=== PATIENT | female | born 1935 | race Caucasian/White ===

== ENCOUNTER 2016-10-12 08:00 | Outpatient (CLI) | payer MEDICARE, BC | END 2016-10-12 08:01 | disposition home or self-care (01) | DX: N30.00 Acute cystitis without hematuria (principal) ==

== ENCOUNTER 2016-11-04 10:53 | Outpatient (CLI) | payer MEDICARE, BC | END 2016-11-04 10:54 | disposition home or self-care (01) | LOC: LAB.R 10:53 | PROVIDERS: ATTEND Internal Medicine | DX: N30.00 Acute cystitis without hematuria (principal) | CPT/HCPCS: 87077; 87086 ==

== ENCOUNTER 2017-01-04 11:32 | Outpatient (CLI) | payer MEDICARE, BC | END 2017-01-04 11:33 | disposition home or self-care (01) | DX: I10 Essential (primary) hypertension (principal); R73.09 Other abnormal glucose; E78.2 Mixed hyperlipidemia; Z79.899 Other long term (current) drug therapy ==

== ENCOUNTER 2017-01-06 11:00 | Outpatient (CLI) | payer MEDICARE, BC | END 2017-01-06 11:01 | disposition home or self-care (01) | DX: N30.00 Acute cystitis without hematuria (principal) ==

== ENCOUNTER 2017-05-27 03:29 | Emergency (ER) | payer MEDICARE, BC ==
[2017-05-27] MEDS ORDERED: PROPARACAINE 0.5% OPHTH DROPS 15 ML ONE (03:53)
[2017-05-27] MEDS ORDERED: GENTAMICIN ONE (04:16)
[2017-05-27 04:26] VITALS: BP 188/88
--- NOTE | 2017-05-27 04:26 | ED Physician Documentation ---
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 About 1 hour prior to arrival she was squeezing hands utility assembler out of a bottle, when it splashed into her eye. She irrigated her right eye, but has continued to have pain and blurry vision. She denies headache, nausea or vomiting. She denies history of similar symptoms in the past. She has undergone cataract surgery, and wears reading glasses. 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 Cardiovascular: Vascular surgery HEENT: Cataracts - Present Medications Home Medications: Ambulatory Orders Medication Instructions Recorded Confirmed Omeprazole [PriLOSEC] 20 mg PO BID 06/12/13 05/27/17 Aspirin [Aspir-Low] 81 mg PO DAILY 02/02/16 05/27/17 Valsartan [Diovan] 80 mg QPM 04/22/16 05/27/17 Latanoprost 0.005% Ophth Drops 1 drops EACHEYE QPM bottle 04/23/16 05/27/17 [Xalatan Ophth Drops] Nitroglycerin [Nitrostat] 0.4 mg SL Q5MIN PRN #2 tablet 04/23/16 05/27/17 - Allergies Allergies/Adverse Reactions: Allergies Allergy/AdvReac Type Severity Reaction Status Date / Time celecoxib [From Celebrex] Allergy Mild stomach Verified 05/27/17 03:36 cephalexin monohydrate * Allergy Mild Rash Verified 05/27/17 03:36 [From Keflex] ciprofloxacin [From Cipro] Allergy Mild Rash Verified 05/27/17 03:36 ciprofloxacin HCl * Allergy Mild Rash Verified 05/27/17 03:36 [From Cipro] codeine [Codeine] Allergy Mild Rash Verified 05/27/17 03:36 erythromycin base Allergy Mild Rash Verified 05/27/17 03:36 [Erythromycin Base] ibuprofen Allergy Mild stomach Verified 05/27/17 03:36 levofloxacin [From Levaquin] Allergy Mild Rash Verified 05/27/17 03:36 meloxicam [From Mobic] Allergy Mild stomach Verified 05/27/17 03:36 meperidine HCl * Allergy Mild Rash Verified 05/27/17 03:36 [From Demerol] metformin Allergy Mild stomach Verified 05/27/17 03:36 morphine Allergy Mild Rash Verified 05/27/17 03:36 nitrofurantoin Allergy Mild Rash Verified 05/27/17 03:36 macrocrystalline * [From Macrodantin] norfloxacin [From Noroxin] Allergy Mild Rash Verified 05/27/17 03:36 Penicillins Allergy Mild Rash Verified 05/27/17 03:36 povidone-iodine Allergy Mild Rash Verified 05/27/17 03:36 [From Betadine] Quinolones Allergy Mild Rash Verified 05/27/17 03:36 soap * [From Betadine] Allergy Mild Rash Verified 05/27/17 03:36 Sulfa (Sulfonamide Allergy Mild Rash Verified 05/27/17 03:36 Antibiotics) tetracycline [Tetracycline] Allergy Mild Rash Verified 05/27/17 03:36 Thiazides Allergy Mild Rash Verified 05/27/17 03:36 prednisone Allergy Anxiety Verified 05/27/17 03:36 pioglitazone HCl * AdvReac Mild felt funny Verified 05/27/17 03:36 [From Actos] trimethoprim AdvReac Unknown Verified 05/27/17 03:36 - Social History Does the pt smoke?: No Smoking Status: Never smoker Does the pt drink ETOH?: No Does the pt have substance abuse?: No - Immunizations Immunizations are current?: Yes - POLST Patient has POLST: No PD ED PE NORMAL - Vitals Vital signs reviewed: Yes (Hypertensive) - General General: Alert and oriented X 3, Well developed/nourished - HEENT HEENT: PERRL, EOMI, Other (Right conjunctiva is injected appearing. Fluorescein stain and Jitendra exam reveals fluorescein uptake with corneal abrasion across the upper half of the cornea.) - Neck Neck: No adenopathy, No JVD - Respiratory Respiratory: No respiratory distress - Derm Derm: No rash - Neuro Neuro: Alert and oriented X 3, No motor deficit, Normal speech PD ED PE EXPANDED - Eyes Eyes: Visual acuity - see nn (20/70 on right; 20/30 +2 on left.), PERRL, Normal accommodation, EOMI, Right eye, Normal eyelids, Injected conj/sclera, Corneal abrasion, Fluorescein uptake Results - Vitals Vitals: Vital Signs - 24 hr 05/27/17 05/27/17 03:30 04:26 Temperature 36.2 C L 36.3 C L Heart Rate 95 97 Respiratory 18 15 Rate Blood Pressure 166/96 H 188/88 H O2 Saturation 98 97 Oxygen O2 Source Room air PD MEDICAL DECISION MAKING - ED course Complexity details: re-evaluated patient, considered differential, d/w patient ED course: The patient's presentation is significant for chemical conjunctivitis of the right eye, with corneal abrasion. Treatment in the emergency department included irrigation with normal saline, and administration of gentamicin ophthalmic ointment. It should be noted that her pain markedly improved with administration of ophthalmic proparacaine. I discussed with her the diagnosis, expected course of injury, outpatient follow-up, as well as potentially worrisome signs or symptoms that should prompt reevaluation in the emergency department. The remainder of the tube of gentamicin ophthalmic ointment was dispensed. Departure - Departure Disposition: 01 Home, Self Care Clinical Impression: Chemical conjunctivitis of right eye Cornea abrasion Qualifiers: Encounter type: initial encounter Laterality: right Qualified Code(s): S05.01XA - Injury of conjunctiva and corneal abrasion without foreign body, right eye, initial encounter Condition: Stable Instructions: ED Chemical Conjunctivitis, ED Eye Injury Corneal Abrasion Follow-Up: Jamarcus Prather MD [Provider Admit Priv/Credential] - Ti Rosa MD [Primary Care Provider] - Comments: Apply gentamicin ophthalmic ointment in your right eye 3 or 4 times daily for 2 days. 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 Call to schedule an appointment. Return to the emergency department if you develop increasing pain in your eye, decreasing vision, or otherwise worsening symptoms.
== END 2017-05-27 04:25 | disposition home or self-care (01) ==
LOC: ED 03:29
DX: T26.61XA Corrosion of cornea and conjunctival sac, right eye, initial encounter (principal); T49.0X1A Poisoning by local antifungal, anti-infective and anti-inflammatory drugs, accidental (unintentional), initial encounter; I10 Essential (primary) hypertension; E11.9 Type 2 diabetes mellitus without complications; Z79.82 Long term (current) use of aspirin; Z96.659 Presence of unspecified artificial knee joint
CPT/HCPCS: 99283; A9270; J3490

== ENCOUNTER 2017-06-09 13:02 | Outpatient (CLI) | payer MEDICARE, BC ==
[2017-06-09 19:31] LABS: CALCIUM 9.8 mg/dL (8.5-10.3); CREATININE 0.6 mg/dL (0.4-1.0); POTASSIUM 3.8 mmol/L (3.5-5.0)
== END 2017-06-09 13:03 | disposition home or self-care (01) ==
LOC: LAB.N 13:02
PROVIDERS: ATTEND Internal Medicine Cardiovascular Disease
DX: I10 Essential (primary) hypertension (principal); I49.1 Atrial premature depolarization; I51.9 Heart disease, unspecified; E66.01 Morbid (severe) obesity due to excess calories; Z68.41 Body mass index [BMI] 40.0-44.9, adult
CPT/HCPCS: 36415; 80048

== ENCOUNTER 2017-08-24 13:32 | Outpatient (CLI) | payer MEDICARE, BC | END 2017-08-24 13:33 | disposition home or self-care (01) | LOC: RT 13:32 | PROVIDERS: ATTEND Internal Medicine | DX: R06.2 Wheezing (principal) | CPT/HCPCS: 94010 ==

== ENCOUNTER 2017-09-20 09:07 | Outpatient (CLI) | payer MEDICARE, BC ==
--- NOTE | 2017-09-21 13:27 | XRAY Report ---
DATE OF SERVICE: 09/20/2017 MODIFIED BARIUM SWALLOW: 09/20/2017 CLINICAL INDICATION: Dysphagia. FINDINGS: Various consistencies of barium were prepared and administered in conjunction with Speech Pathology. There was no evidence of penetration or aspiration with any administered consistency. Pl ease also refer to full report from Speech Pathology. IMPRESSION: No evidence of penetration or aspiration. FLUOROSCOPY TIME: One minute 45 seconds; 1 spot image obtained (cine fluoroscopy recorded). TD: 09/20/2017 19:33
== END 2017-09-20 09:08 | disposition home or self-care (01) ==
LOC: DI 09:07
PROVIDERS: ATTEND Internal Medicine
DX: R13.13 Dysphagia, pharyngeal phase (principal)
CPT/HCPCS: 74230; 92611; G8996; G8997; G8998

== ENCOUNTER 2017-10-03 14:54 | Outpatient (CLI) | payer MEDICARE, BC | END 2017-10-03 14:55 | disposition critical access hospital (66) | LOC: EMS 14:54 | PROVIDERS: ATTEND Surgery | DX: M79.602 Pain in left arm (principal); R20.0 Anesthesia of skin | CPT/HCPCS: A0425; A0427 ==

== ENCOUNTER 2017-10-03 15:11 | Emergency (ER) | payer MEDICARE, BC ==
--- NOTE | 2017-10-03 16:06 | ED Physician Documentation ---
History of Present Illness - Stated complaint Stated Complaint: SHOULDER PX - Chief complaint Chief Complaint: Ext Problem - History obtained from History obtained from: Patient - History of Present Illness Timing: How many weeks ago (3) Pain level max: 5 Pain level now: 0 Improved by: states aspirin made the chest pain better a few weeks ago Worsened by: movement of the L shoulder - Additonal information Additional information: Patient is an 81-year-old female who presents to the emergency department with complaints of "angina attacks" twice over the past 3 weeks. She also states that her left shoulder has been hurting more than normal. And that her left arm intermittently feels cold. She has not noticed any color changes to the arm. Currently feels normal. She states that she called her primary care provider's office to make an appointment and was informed to come here. She currently feels well. Took aspirin prior to arrival. Review of Systems Ten Systems: 10 systems reviewed and negative Constitutional: denies: Fever, Chills Ears: denies: Ear pain Nose: denies: Rhinorrhea / runny nose, Congestion Throat: denies: Sore throat Cardiac: denies: Palpitations Respiratory: denies: Dyspnea, Cough, Hemoptysis, Wheezing GI: denies: Abdominal Pain, Nausea, Vomiting, Diarrhea, Hematemesis : denies: Dysuria Skin: denies: Rash Musculoskeletal: denies: Neck pain, Back pain Neurologic: denies: Headache PD PAST MEDICAL HISTORY - Past Medical History Cardiovascular: Hypertension Respiratory: Pneumonia Neuro: None Endocrine/Autoimmune: Type 2 diabetes GI: GERD : Incontinence, Chronic bladder infection, Kidney stones HEENT: Glaucoma Psych: Anxiety Musculoskeletal: Osteoarthritis, Fibromyalgia Derm: None - Past Surgical History Past Surgical History: Yes General: Cholecystectomy, Colonoscopy 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 Cardiovascular: Vascular surgery HEENT: Cataracts - Present Medications Home Medications: Ambulatory Orders Medication Instructions Recorded Confirmed Aspirin [Aspir-Low] 81 mg PO DAILY 02/02/16 10/03/17 Latanoprost 0.005% Ophth Drops 1 drops EACHEYE QPM bottle 04/23/16 10/03/17 [Xalatan Ophth Drops] - Allergies Allergies/Adverse Reactions: Allergies Allergy/AdvReac Type Severity Reaction Status Date / Time celecoxib [From Celebrex] Allergy Mild stomach Verified 10/03/17 15:21 cephalexin monohydrate * Allergy Mild Rash Verified 10/03/17 15:21 [From Keflex] ciprofloxacin [From Cipro] Allergy Mild Rash Verified 10/03/17 15:21 ciprofloxacin HCl * Allergy Mild Rash Verified 10/03/17 15:21 [From Cipro] codeine [Codeine] Allergy Mild Rash Verified 10/03/17 15:21 erythromycin base Allergy Mild Rash Verified 10/03/17 15:21 [Erythromycin Base] ibuprofen Allergy Mild stomach Verified 10/03/17 15:21 levofloxacin [From Levaquin] Allergy Mild Rash Verified 10/03/17 15:21 meloxicam [From Mobic] Allergy Mild stomach Verified 10/03/17 15:21 meperidine HCl * Allergy Mild Rash Verified 10/03/17 15:21 [From Demerol] metformin Allergy Mild stomach Verified 10/03/17 15:21 morphine Allergy Mild Rash Verified 10/03/17 15:21 nitrofurantoin Allergy Mild Rash Verified 10/03/17 15:21 macrocrystalline * [From Macrodantin] norfloxacin [From Noroxin] Allergy Mild Rash Verified 10/03/17 15:21 Penicillins Allergy Mild Rash Verified 10/03/17 15:21 povidone-iodine Allergy Mild Rash Verified 10/03/17 15:21 [From Betadine] Quinolones Allergy Mild Rash Verified 10/03/17 15:21 soap * [From Betadine] Allergy Mild Rash Verified 10/03/17 15:21 Sulfa (Sulfonamide Allergy Mild Rash Verified 10/03/17 15:21 Antibiotics) tetracycline [Tetracycline] Allergy Mild Rash Verified 10/03/17 15:21 Thiazides Allergy Mild Rash Verified 10/03/17 15:21 prednisone Allergy Anxiety Verified 10/03/17 15:21 pioglitazone HCl * AdvReac Mild felt funny Verified 10/03/17 15:21 [From Actos] trimethoprim AdvReac Unknown Verified 10/03/17 15:21 - Social History Does the pt smoke?: No Smoking Status: Never smoker Does the pt drink ETOH?: No Does the pt have substance abuse?: No - Immunizations Immunizations are current?: Yes - POLST Patient has POLST: No PD ED PE NORMAL - Vitals Vital signs reviewed: Yes - General General: Alert and oriented X 3, No acute distress - HEENT HEENT: Moist mucous membranes - Neck Neck: Supple, no meningeal sign - Cardiac Cardiac: RRR, No murmur, Strong equal pulses, Other (brisk cap refill B UE. + mark anthony's test B hands. strong brachial and radial pulses B) - Respiratory Respiratory: No respiratory distress, Clear bilaterally - Abdomen Abdomen: Soft, Non tender, Non distended - Derm Derm: Warm and dry - Extremities Extremities: No deformity, Other (TTP over the L shoulder. No deformity. NVI. Pain with rOM.) - Neuro Neuro: Alert and oriented X 3 Results - Vitals Vitals: Vital Signs - 24 hr 10/03/17 10/03/17 15:17 17:30 Temperature 37.1 C Heart Rate 84 81 Respiratory 16 16 Rate Blood Pressure 198/80 H 166/77 H O2 Saturation 95 96 Oxygen O2 Source Room air - EKG (time done) 1647 Rate: Rate (enter#) (69) Rhythm: NSR [place]: Normal Intervals: Normal [place] QRS: Normal Ischemia: Normal ST segments Computer interpretation: Agree with computer - Labs Labs: Laboratory Tests 10/03/17 10/03/17 10/03/17 16:13 16:13 16:13 WBC 8.0 RBC 4.84 Hgb 14.8 Hct 42.5 MCV 87.8 MCH 30.6 MCHC 34.8 RDW 13.8 Plt Count 184 MPV 9.2 Neut # 5.4 Lymph # 1.9 [place] # 0.6 Eos # 0.1 Baso # 0.0 Absolute Nucleated RBC 0.00 Nucleated RBC % 0.0 Sodium 138 Potassium 3.7 Chloride 101 Carbon Dioxide 23 Anion Gap 14.0 H BUN 13 Creatinine 0.6 Estimated GFR (MDRD) 96 Glucose 162 H Calcium 9.6 Total Bilirubin < 0.2 L AST 21 ALT 24 Alkaline Phosphatase 88 Troponin I < 0.04 B-Natriuretic Peptide Total Protein 6.8 Albumin 3.5 Globulin 3.3 Albumin/Globulin Ratio 1.1 Lipase 19 L 10/03/17 16:13 WBC RBC Hgb Hct MCV MCH MCHC RDW Plt Count MPV Neut # Lymph # [place] # Eos # Baso # Absolute Nucleated RBC Nucleated RBC % Sodium Potassium Chloride Carbon Dioxide Anion Gap BUN Creatinine Estimated GFR (MDRD) Glucose Calcium Total Bilirubin AST ALT Alkaline Phosphatase Troponin I B-Natriuretic Peptide 60 Total Protein Albumin Globulin Albumin/Globulin Ratio Lipase - Rads (name of study) cxr Radiology: Prelim report reviewed, EMP read contemporaneously, See rad report ( Normal single view chest. ) PD MEDICAL DECISION MAKING - ED course Complexity details: reviewed results, re-evaluated patient, considered differential (No ST elevation CT, no aortic dissection, no PE, no tension pneumothorax, no aortic aneurysm), d/w patient ED course: Patient is an 81-year-old female who presents to the emergency department with chest pain intermittently for the past 3 weeks, non-for a few days. Also has left shoulder pain that she feels like is her arthritis. She feels like her left arm sometimes is cold. Has a normal vascular exam here. No evidence of arterial injury or venous thrombus. Symptoms are not consistent with aortic dissection or aneurysm. Negative troponin. No acute findings on EKG. We will have her follow-up with her doctor for further evaluation and care. Patient counseled regarding signs and symptoms for which I believe and urgent re- evaluation would be necessary. Patient with good understanding of and agreement to plan and is comfortable going home at this time This document was made in part using voice recognition software. While efforts are made to proofread this document, sound alike and grammatical errors may occur. Departure - Departure Disposition: 01 Home, Self Care Clinical Impression: Shoulder pain, left Qualifiers: Chronicity: acute Qualified Code(s): M25.512 - Pain in left shoulder Condition: Good Instructions: ED Shoulder Pain [facility] Follow-Up: Ti Rosa MD [Primary Care Provider] - Within 3 Days Comments: Return if you worsen. Your tests appear normal tonight. Follow up with Dr. Rosa for further care. Discharge Date/Time: 10/03/17 17:32
[2017-10-03 16:21] LABS: BASOPHILS % (AUTO) 0.6 %; EOSINOPHILS # (AUTO) 0.1 10^3/uL (0.0-0.7); EOSINOPHILS % (AUTO) 0.7 %; HGB - HEMOGLOBIN 14.8 g/dL (12.0-16.0); LYMPHOCYTES # (AUTO) 1.9 10^3/uL (1.5-3.5); LYMPHOCYTES % (AUTO) 23.5 %; MEAN CORPUSCULAR HEMOGLOBIN 30.6 pg (27.0-31.0); MEAN CORPUSCULAR HGB CONC 34.8 g/dL (32.0-36.0); MEAN CORPUSCULAR VOLUME 87.8 fL (81.0-99.0); MEAN PLATELET VOLUME 9.2 fL (7.9-10.8); MONOCYTES # (AUTO) 0.6 10^3/uL (0.0-1.0); MONOCYTES % (AUTO) 7.1 %; NEUTROPHILS # (AUTO) 5.4 10^3/uL (1.5-6.6); NEUTROPHILS % (AUTO) 68.1 %; PLT - PLATELET COUNT 184 10^3/uL (130-450); RED BLOOD COUNT 4.84 10^6/uL (4.20-5.40); RED CELL DISTRIBUTION WIDTH 13.8 % (12.0-15.0)
[2017-10-03 16:35] LABS: ALBUMIN 3.5 g/dL (3.2-5.5); ALBUMIN/GLOBULIN RATIO 1.1 (1.0-2.2); ALKALINE PHOSPHATASE 88 IU/L (42-121); ALT ALANINE AMINOTRANSFERASE 24 IU/L (10-60); AST ASPARTATE AMINOTRANSFERASE 21 IU/L (10-42); BILIRUBIN,TOTAL < 0.2 mg/dL (0.2-1.0); BUN - BLOOD UREA NITROGEN 13 mg/dL (6-20); CALCIUM 9.6 mg/dL (8.5-10.3); CARBON DIOXIDE - CO2 23 mmol/L (21-32); CHLORIDE 101 mmol/L (101-111); CREATININE 0.6 mg/dL (0.4-1.0); GFR - MDRD 96 (>89); GLUCOSE 162 mg/dL (70-100); LIPASE 19 U/L (22-51); SODIUM 138 mmol/L (135-145); TOTAL PROTEIN 6.8 g/dL (6.7-8.2)
--- NOTE | 2017-10-03 17:12 | XRAY Preliminary Report ---
Exam: XR CHEST 1 VIEW X-RAY IMPRESSION: Normal single view chest. [facility] SITE ID: [id number]
--- NOTE | 2017-10-03 17:16 | XRAY Report ---
EXAM: CHEST RADIOGRAPHY EXAM DATE: 10/03/2017 04:30 PM. CLINICAL HISTORY: Chest pain. COMPARISON: 04/22/2016. TECHNIQUE: 1 view. FINDINGS: Lungs/Pleura: No focal opacities evident. No pleural effusion. No pneumothorax. Mediastinum: Within exam limitations, the cardiomediastinal contour is normal. Other: None. IMPRESSION: Normal single view chest. [facility] Referring Provider Line: [phone] SITE ID: [id number]
[2017-10-03 17:32] VITALS: BP 166/77
== END 2017-10-03 17:32 | disposition home or self-care (01) ==
LOC: EDUNIT# → ED 15:11
DX: M25.512 Pain in left shoulder (principal); R07.9 Chest pain, unspecified; M19.90 Unspecified osteoarthritis, unspecified site; M79.7 Fibromyalgia; I10 Essential (primary) hypertension; E11.9 Type 2 diabetes mellitus without complications; K21.9 Gastro-esophageal reflux disease without esophagitis; Z79.82 Long term (current) use of aspirin
CPT/HCPCS: 36415; 71045; 80053; 83690; 83880; 84484; 85025; 93005; 99283; 99285

== ENCOUNTER 2017-11-30 15:23 | Outpatient (CLI) | payer MEDICARE, BC | END 2017-11-30 15:24 | disposition critical access hospital (66) | LOC: EMS 15:23 | PROVIDERS: ATTEND Surgery | DX: L29.9 Pruritus, unspecified (principal); J39.2 Other diseases of pharynx | CPT/HCPCS: A0425; A0429 ==

== ENCOUNTER 2017-11-30 15:40 | Emergency (ER) | payer MEDICARE, BC ==
--- NOTE | 2017-11-30 15:59 | ED Physician Documentation ---
History of Present Illness - Stated complaint Stated Complaint: ALLERGIC REACTION - History obtained from History obtained from: Patient, EMS - History of Present Illness Timing: How many hours ago (2) Pain level max: 0 Pain level now: 0 Improved by: benadryl Worsened by: nothing - Additonal information Additional information: Patient is an 82-year-old female who took her valsartan today. She states it used to be a white pill, but in now a pink pill and thinks that she may be allergic to the dye. Spiro the dryness in her throat and itching of her arms and was concerned she may be having an allergic reaction. No rashes or hives. No difficulty breathing. No wheezing. No stridor. Brought in by EMS. took benadryl x1 today. Feeling better now. No dyspnea. Review of Systems Constitutional: denies: Fever, Chills Ears: denies: Ear pain Nose: denies: Rhinorrhea / runny nose, Congestion Cardiac: denies: Chest pain / pressure Respiratory: denies: Dyspnea, Cough, Wheezing GI: denies: Nausea, Vomiting, Diarrhea Skin: denies: Rash Musculoskeletal: denies: Neck pain, Back pain Neurologic: denies: Headache PD PAST MEDICAL HISTORY - Past Medical History Cardiovascular: Hypertension Respiratory: Pneumonia Neuro: None Endocrine/Autoimmune: Type 2 diabetes GI: GERD : Incontinence, Chronic bladder infection, Kidney stones HEENT: Glaucoma Psych: Anxiety Musculoskeletal: Osteoarthritis, Fibromyalgia Derm: None - Past Surgical History Past Surgical History: Yes General: Cholecystectomy, Colonoscopy 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 Cardiovascular: Vascular surgery HEENT: Cataracts - Present Medications Home Medications: Ambulatory Orders Medication Instructions Recorded Confirmed Aspirin [Aspir-Low] 81 mg PO DAILY 02/02/16 10/03/17 Latanoprost 0.005% Ophth Drops 1 drops EACHEYE QPM bottle 04/23/16 10/03/17 [Xalatan Ophth Drops] - Allergies Allergies/Adverse Reactions: Allergies Allergy/AdvReac Type Severity Reaction Status Date / Time celecoxib [From Celebrex] Allergy Mild stomach Verified 10/03/17 15:21 cephalexin monohydrate * Allergy Mild Rash Verified 10/03/17 15:21 [From Keflex] ciprofloxacin [From Cipro] Allergy Mild Rash Verified 10/03/17 15:21 ciprofloxacin HCl * Allergy Mild Rash Verified 10/03/17 15:21 [From Cipro] codeine [Codeine] Allergy Mild Rash Verified 10/03/17 15:21 erythromycin base Allergy Mild Rash Verified 10/03/17 15:21 [Erythromycin Base] ibuprofen Allergy Mild stomach Verified 10/03/17 15:21 levofloxacin [From Levaquin] Allergy Mild Rash Verified 10/03/17 15:21 meloxicam [From Mobic] Allergy Mild stomach Verified 10/03/17 15:21 meperidine HCl * Allergy Mild Rash Verified 10/03/17 15:21 [From Demerol] metformin Allergy Mild stomach Verified 10/03/17 15:21 morphine Allergy Mild Rash Verified 10/03/17 15:21 nitrofurantoin Allergy Mild Rash Verified 10/03/17 15:21 macrocrystalline * [From Macrodantin] norfloxacin [From Noroxin] Allergy Mild Rash Verified 10/03/17 15:21 Penicillins Allergy Mild Rash Verified 10/03/17 15:21 povidone-iodine Allergy Mild Rash Verified 10/03/17 15:21 [From Betadine] Quinolones Allergy Mild Rash Verified 10/03/17 15:21 soap * [From Betadine] Allergy Mild Rash Verified 10/03/17 15:21 Sulfa (Sulfonamide Allergy Mild Rash Verified 10/03/17 15:21 Antibiotics) tetracycline [Tetracycline] Allergy Mild Rash Verified 10/03/17 15:21 Thiazides Allergy Mild Rash Verified 10/03/17 15:21 prednisone Allergy Anxiety Verified 10/03/17 15:21 pioglitazone HCl * AdvReac Mild felt funny Verified 10/03/17 15:21 [From Actos] trimethoprim AdvReac Unknown Verified 10/03/17 15:21 - Social History Does the pt smoke?: No Smoking Status: Never smoker Does the pt drink ETOH?: No Does the pt have substance abuse?: No - Immunizations Immunizations are current?: Yes - POLST Patient has POLST: No PD ED PE NORMAL - Vitals Vital signs reviewed: Yes - General General: Alert and oriented X 3, No acute distress - HEENT HEENT: PERRL, Moist mucous membranes, Pharynx benign - Neck Neck: Supple, no meningeal sign, Other (No stridor or wheezing) - Cardiac Cardiac: RRR, Strong equal pulses - Respiratory Respiratory: No respiratory distress, Clear bilaterally - Abdomen Abdomen: Soft, Non tender, Non distended - Derm Derm: Warm and dry, No rash - Extremities Extremities: No edema - Neuro Neuro: Alert and oriented X 3 - Psych Psych: Normal mood, Normal affect Results - Vitals Vitals: Vital Signs - 24 hr 11/30/17 15:58 Temperature 35.9 C L Heart Rate 86 Respiratory 18 Rate Blood Pressure 169/86 H O2 Saturation 96 Oxygen O2 Source Room air PD MEDICAL DECISION MAKING - ED course Complexity details: considered differential, d/w patient ED course: Patient is an 82-year-old female who presents to the emergency department with what sounds like an allergic reaction earlier today at home. Resolved with Benadryl. No evidence of allergic reaction here. No anaphylaxis. We will continue supportive care and follow-up with her doctor. Possible that this was related to her valsartan, will hold this until she talks to her doctor about alternative medications. Patient counseled regarding signs and symptoms for which I believe and urgent re-evaluation would be necessary. Patient with good understanding of and agreement to plan and is comfortable going home at this time This document was made in part using voice recognition software. While efforts are made to proofread this document, sound alike and grammatical errors may occur. Departure - Departure Disposition: 01 Home, Self Care Clinical Impression: Allergic reaction Qualifiers: Encounter type: initial encounter Qualified Code(s): T78.40XA - Allergy, unspecified, initial encounter Condition: Good Instructions: ED Drug React Allergic Follow-Up: your,doctor in 3 days [Other] Comments: Return if you worsen. Hold your valsartan until you talk to your doctor about your medications. Discharge Date/Time: 11/30/17 16:30
[2017-11-30 16:00] VITALS: BP 169/86
== END 2017-11-30 16:30 | disposition home or self-care (01) ==
LOC: EDUNIT# → ED 15:40
DX: T78.40XA Allergy, unspecified, initial encounter (principal); L29.9 Pruritus, unspecified; J39.2 Other diseases of pharynx; I10 Essential (primary) hypertension; E11.9 Type 2 diabetes mellitus without complications; Z79.82 Long term (current) use of aspirin
CPT/HCPCS: 99283

== ENCOUNTER 2017-12-02 16:52 | Emergency (ER) | payer MEDICARE, BC ==
--- NOTE | 2017-12-02 17:51 | ED Physician Documentation ---
History of Present Illness - Stated complaint Stated Complaint: LT FOOT INJ - Chief complaint Chief Complaint: Ext Problem - History obtained from History obtained from: Patient - History of Present Illness Timing: How many days ago (2) Pain level max: 6 Pain level now: 4 Quality: aching, dull pain Improved by: rest Worsened by: walking - Additonal information Additional information: States L lower leg pain and redness after falling through her deck 2 days ago. concerned it may be becoming infected. She is diabetic. No fevers. Review of Systems Constitutional: denies: Fever, Chills GI: denies: Vomiting, Diarrhea Skin: denies: Rash Musculoskeletal: denies: Neck pain, Back pain Neurologic: denies: Headache PD PAST MEDICAL HISTORY - Past Medical History Past Medical History: Yes Cardiovascular: Hypertension Respiratory: Pneumonia Neuro: None Endocrine/Autoimmune: Type 2 diabetes GI: GERD : Incontinence, Chronic bladder infection, Kidney stones HEENT: Glaucoma Psych: Anxiety Musculoskeletal: Osteoarthritis, Fibromyalgia Derm: None - Past Surgical History Past Surgical History: Yes General: Cholecystectomy, Colonoscopy 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 Cardiovascular: Vascular surgery HEENT: Cataracts - Present Medications Home Medications: Ambulatory Orders Medication Instructions Recorded Confirmed Aspirin [Aspir-Low] 81 mg PO DAILY 02/02/16 10/03/17 Latanoprost 0.005% Ophth Drops 1 drops EACHEYE QPM bottle 04/23/16 10/03/17 [Xalatan Ophth Drops] - Allergies Allergies/Adverse Reactions: Allergies Allergy/AdvReac Type Severity Reaction Status Date / Time celecoxib [From Celebrex] Allergy Mild stomach Verified 10/03/17 15:21 cephalexin monohydrate * Allergy Mild Rash Verified 10/03/17 15:21 [From Keflex] ciprofloxacin [From Cipro] Allergy Mild Rash Verified 10/03/17 15:21 ciprofloxacin HCl * Allergy Mild Rash Verified 10/03/17 15:21 [From Cipro] codeine [Codeine] Allergy Mild Rash Verified 10/03/17 15:21 erythromycin base Allergy Mild Rash Verified 10/03/17 15:21 [Erythromycin Base] ibuprofen Allergy Mild stomach Verified 10/03/17 15:21 levofloxacin [From Levaquin] Allergy Mild Rash Verified 10/03/17 15:21 meloxicam [From Mobic] Allergy Mild stomach Verified 10/03/17 15:21 meperidine HCl * Allergy Mild Rash Verified 10/03/17 15:21 [From Demerol] metformin Allergy Mild stomach Verified 10/03/17 15:21 morphine Allergy Mild Rash Verified 10/03/17 15:21 nitrofurantoin Allergy Mild Rash Verified 10/03/17 15:21 macrocrystalline * [From Macrodantin] norfloxacin [From Noroxin] Allergy Mild Rash Verified 10/03/17 15:21 Penicillins Allergy Mild Rash Verified 10/03/17 15:21 povidone-iodine Allergy Mild Rash Verified 10/03/17 15:21 [From Betadine] Quinolones Allergy Mild Rash Verified 10/03/17 15:21 soap * [From Betadine] Allergy Mild Rash Verified 10/03/17 15:21 Sulfa (Sulfonamide Allergy Mild Rash Verified 10/03/17 15:21 Antibiotics) tetracycline [Tetracycline] Allergy Mild Rash Verified 10/03/17 15:21 Thiazides Allergy Mild Rash Verified 10/03/17 15:21 prednisone Allergy Anxiety Verified 10/03/17 15:21 valsartan Allergy Anaphylaxis Verified 12/02/17 17:19 pioglitazone HCl * AdvReac Mild felt funny Verified 10/03/17 15:21 [From Actos] trimethoprim AdvReac Unknown Verified 10/03/17 15:21 - Social History Does the pt smoke?: No Smoking Status: Never smoker Does the pt drink ETOH?: No Does the pt have substance abuse?: No - Immunizations Immunizations are current?: Yes - POLST Patient has POLST: No PD ED PE NORMAL - Vitals Vital signs reviewed: Yes - General General: Alert and oriented X 3, No acute distress - HEENT HEENT: Moist mucous membranes - Neck Neck: Supple, no meningeal sign - Cardiac Cardiac: RRR, Strong equal pulses - Respiratory Respiratory: No respiratory distress, Clear bilaterally - Abdomen Abdomen: Soft, Non tender, Non distended - Derm Derm: Warm and dry - Extremities Extremities: Other (Patient with a 4 x 4 centimeter area of ecchymosis to the left calf, proximal aspect, medial side. No posterior calf tenderness. No bony tenderness. No evidence of infection. No broken skin) - Neuro Neuro: Alert and oriented X 3 - Psych Psych: Normal mood, Normal affect Results - Vitals Vitals: Vital Signs - 24 hr 12/02/17 12/02/17 17:15 18:18 Temperature 36.4 C L 36.8 C Heart Rate 110 H 89 Respiratory 18 16 Rate Blood Pressure 148/85 H 113/88 H O2 Saturation 95 94 Oxygen O2 Source Room air PD MEDICAL DECISION MAKING - ED course Complexity details: reviewed old records, considered differential, d/w patient ED course: Patient is an 82-year-old female who presents to the emergency department with a hematoma to the left leg. Compartments are soft. No compartment syndrome. Placed in Herb wrap for comfort. No evidence of infection. Will have her follow -up with her doctor for further evaluation and care. Patient counseled regarding signs and symptoms for which I believe and urgent re-evaluation would be necessary. Patient with good understanding of and agreement to plan and is comfortable going home at this time This document was made in part using voice recognition software. While efforts are made to proofread this document, sound alike and grammatical errors may occur. Departure - Departure Disposition: 01 Home, Self Care Clinical Impression: Hematoma Condition: Good Instructions: ED Hematoma Follow-Up: Ti Rosa MD [Primary Care Provider] - Within 1 week Comments: Return if you worsen. Use the HERB wrap to help with compression and you can use ice as well. Discharge Date/Time: 12/02/17 18:21
[2017-12-02 18:19] VITALS: BP 113/88
== END 2017-12-02 18:21 | disposition home or self-care (01) ==
LOC: ED 16:52
DX: S80.12XA Contusion of left lower leg, initial encounter (principal); W19.XXXA Unspecified fall, initial encounter; Y92.007 Garden or yard of unspecified non-institutional (private) residence as the place of occurrence of the external cause; I10 Essential (primary) hypertension; E11.9 Type 2 diabetes mellitus without complications; Z96.659 Presence of unspecified artificial knee joint; Z79.82 Long term (current) use of aspirin
CPT/HCPCS: 99282; 99283

== ENCOUNTER 2018-02-16 10:05 | Outpatient (CLI) | payer MEDICARE, BC ==
--- NOTE | 2018-02-17 17:42 | Mammography Report ---
DIGITAL SCREENING MAMMOGRAM: 02/16/2018 CLINICAL INDICATION: An 82-year-old with history of benign right breast biopsy for screening. TECHNIQUE: Routine CC and MLO projections were obtained of the breasts. COMPARISON: 08/2016, 08/2014, 08/2012, 08/2011, 08/2010. FINDINGS: The breasts demonstrate scattered fibroglandular densities bilaterally. Right breast biopsy marker is stable. Coarse and punctate, typically benign calcifications are present. No suspicious masses, clustered microcalcifications, or regions of architectural distortion are identified. IMPRESSION: BENIGN FINDINGS. RECOMMENDATION: Routine annual screening unless otherwise clinically indicated. BIRADS category 2 benign findings. STANDARD QUALIFYING STATEMENTS 1. This examination was reviewed with the aid of Computed-Aided Detection (CAD). 2. A negative or benign imaging report should not delay biopsy if clinically suspicious findings are present. Consider surgical consultation if warranted. More than 5% of cancers are not identified by imaging. 3. Dense breasts may obscure an underlying neoplasm. TD: 02/17/2018 12:57
== END 2018-02-16 10:06 | disposition home or self-care (01) ==
LOC: DI 10:05
PROVIDERS: ATTEND Internal Medicine
DX: Z12.31 Encounter for screening mammogram for malignant neoplasm of breast (principal)
CPT/HCPCS: 77067

== ENCOUNTER 2018-09-27 10:37 | Emergency (ER) | payer MEDICARE, BC ==
--- NOTE | 2018-09-27 11:38 | ED Physician Documentation ---
History of Present Illness - Stated complaint Stated Complaint: GLF - Chief complaint Chief Complaint: Trauma Hd/Nk - Additonal information Additional information: hx from pt 82 female fell out of bed his R parietal region on dresser no LOC severe REYES no LOC seizure numbness weakness no blood thiners - she is allergic to very medication except stool softeners Review of Systems GI: denies: Nausea, Vomiting Musculoskeletal: denies: Neck pain Neurologic: reports: Headache, Head injury. 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 : Incontinence, Chronic bladder infection, Kidney stones HEENT: Glaucoma Psych: Anxiety Musculoskeletal: Osteoarthritis, Fibromyalgia Derm: None - Past Surgical History Past Surgical History: Yes General: Cholecystectomy, Colonoscopy Ortho: Knee 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 Cardiovascular: Vascular surgery HEENT: Cataracts - Present Medications Home Medications: Ambulatory Orders Medication Instructions Recorded Confirmed Aspirin [Aspir-Low] 81 mg PO DAILY 02/02/16 09/27/18 Latanoprost 0.005% Ophth Drops 1 drops EACHEYE QPM bottle 04/23/16 09/27/18 [Xalatan Ophth Drops] - Allergies Allergies/Adverse Reactions: Allergies Allergy/AdvReac Type Severity Reaction Status Date / Time celecoxib [From Celebrex] Allergy Mild stomach Verified 09/27/18 10:56 cephalexin monohydrate * Allergy Mild Rash Verified 09/27/18 10:56 [From Keflex] ciprofloxacin [From Cipro] Allergy Mild Rash Verified 09/27/18 10:56 ciprofloxacin HCl * Allergy Mild Rash Verified 09/27/18 10:56 [From Cipro] codeine [Codeine] Allergy Mild Rash Verified 09/27/18 10:56 erythromycin base Allergy Mild Rash Verified 09/27/18 10:56 [Erythromycin Base] ibuprofen Allergy Mild stomach Verified 09/27/18 10:56 levofloxacin [From Levaquin] Allergy Mild Rash Verified 09/27/18 10:56 meloxicam [From Mobic] Allergy Mild stomach Verified 09/27/18 10:56 meperidine HCl * Allergy Mild Rash Verified 09/27/18 10:56 [From Demerol] metformin Allergy Mild stomach Verified 09/27/18 10:56 morphine Allergy Mild Rash Verified 09/27/18 10:56 nitrofurantoin Allergy Mild Rash Verified 09/27/18 10:56 macrocrystalline * [From Macrodantin] norfloxacin [From Noroxin] Allergy Mild Rash Verified 09/27/18 10:56 Penicillins Allergy Mild Rash Verified 09/27/18 10:56 povidone-iodine Allergy Mild Rash Verified 09/27/18 10:56 [From Betadine] Quinolones Allergy Mild Rash Verified 09/27/18 10:56 soap * [From Betadine] Allergy Mild Rash Verified 09/27/18 10:56 Sulfa (Sulfonamide Allergy Mild Rash Verified 09/27/18 10:56 Antibiotics) tetracycline [Tetracycline] Allergy Mild Rash Verified 09/27/18 10:56 Thiazides Allergy Mild Rash Verified 09/27/18 10:56 prednisone Allergy Anxiety Verified 09/27/18 10:56 valsartan Allergy Anaphylaxis Verified 09/27/18 10:56 pioglitazone HCl * AdvReac Mild felt funny Verified 09/27/18 10:56 [From Actos] trimethoprim AdvReac Unknown Verified 09/27/18 10:56 - Social History Does the pt smoke?: No Smoking Status: Never smoker Does the pt drink ETOH?: No Does the pt have substance abuse?: No - Immunizations Immunizations are current?: Yes - POLST Patient has POLST: No PD ED PE NORMAL - Vitals Vital signs reviewed: Yes - General General: Alert and oriented X 3 - HEENT HEENT: PERRL, Ears normal (no berumen sign or hemotympanum) - Neck Neck: No bony TTP - Cardiac Cardiac: RRR - Respiratory Respiratory: No respiratory distress, Clear bilaterally - Abdomen Abdomen: Soft, Non tender - Derm Derm: Normal color - Neuro Neuro: Alert and oriented X 3, it 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 specialist 2-12 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, No motor deficit, No sensory deficit, Normal speech Eye Opening: Spontaneous Motor: Obeys Commands Verbal: Oriented GCS Score: 15 Results - Vitals Vitals: Vital Signs - 24 hr 09/27/18 09/27/18 10:39 14:26 Temperature 36.1 C L Heart Rate 98 79 Respiratory 18 16 Rate Blood Pressure 185/101 H 152/82 H O2 Saturation 98 98 Oxygen O2 Source Room air - Rads (name of study) CTH Radiology: See rad report (neg) CT CS Radiology: See rad report (neg) PD MEDICAL DECISION MAKING - ED course ED course: very long ED stay due to CT down for preventative maintenance Departure - Departure Disposition: Home, Self Care Clinical Impression: Head injury Qualifiers: Encounter type: initial encounter Qualified Code(s): S09.90XA - Unspecified injury of head, initial encounter Condition: Good Instructions: ED Head Injury Closed Follow-Up: Ti Rosa MD [Primary Care Provider] - Comments: Thankfully the CT scans were fine - no skull or spine fracture, no brain bleeding or swelling So it is safe for you to go home Since you are allergic to all medications I recommend applying ice wrapped in a towel for 20 minutes at a time
--- NOTE | 2018-09-27 15:12 | CT Report ---
Reason: fall HI Procedure Date: 09/27/2018 Accession Number: [id number] / [id number] Procedure: CT - Cervical Spine W/O CPT Code: FULL RESULT: EXAM: CT HEAD CT SCAN OF THE CERVICAL SPINE EXAM DATE: 09/27/2018 02:53 PM. CLINICAL HISTORY: Right parietal injury. COMPARISON: Head w/o contrast 09/07/2015 7:18 PM. Cervical spine w/o contrast 09/27/2018 2:36 PM. TECHNIQUE: Noncontrast axial sections through the head and cervical spine. Reformats: Sagittal and coronal of the head, coronal and sagittal of the cervical spine. In accordance with CT protocol optimization, one or more of the following dose reduction techniques were utilized for this exam: automated exposure control, adjustment of mA and/or KV based on patient size, or use of iterative reconstructive technique. FINDINGS CT HEAD: Parenchyma: No intraparenchymal hemorrhage. No evidence of mass, midline shift, or CT findings of infarction. Starr-white differentiation is distinct. Extraaxial Spaces: Normal for age. No subdural or epidural collections identified. Ventricles: Normal in size and position. Sinuses and orbits: Imaged paranasal sinuses, orbits, and mastoids show no significant abnormality. Bones: No evidence of fracture or calvarial defect. Other: Small extracranial right posterior soft tissue thickening likely represents a superficial hematoma. FINDINGS CT CERVICAL SPINE: Alignment: Normal. No scoliosis or spondylolisthesis. Bones: No fracture or bone lesion. Interspace Levels/Facets: There are multilevel degenerative changes including loss of disk space height with disk osteophyte complex formation with degenerative changes most pronounced from C5 to C7 where loss of disk height is essentially complete. Similarly, there is multilevel facet arthropathy which is most pronounced at C5 through C7, moderate overall. Spinal Canal: Normal. Musculature: Normal. No fatty atrophy. Other: The paravertebral and prevertebral soft tissues are unremarkable. The lung apices are clear. IMPRESSION: Head CT: Negative for an acute intracranial abnormality. Cervical Spine CT: Negative for an acute osseous injury to the cervical spine. RADIA
--- NOTE | 2018-09-27 15:34 | CT Report ---
Reason: R parietal injury Procedure Date: 09/27/2018 Accession Number: [id number] / [id number] Procedure: CT - Head W/O CPT Code: FULL RESULT: EXAM: CT HEAD CT SCAN OF THE CERVICAL SPINE EXAM DATE: 09/27/2018 02:53 PM. CLINICAL HISTORY: Right parietal injury. COMPARISON: Head w/o contrast 09/07/2015 7:18 PM. Cervical spine w/o contrast 09/27/2018 2:36 PM. TECHNIQUE: Noncontrast axial sections through the head and cervical spine. Reformats: Sagittal and coronal of the head, coronal and sagittal of the cervical spine. In accordance with CT protocol optimization, one or more of the following dose reduction techniques were utilized for this exam: automated exposure control, adjustment of mA and/or KV based on patient size, or use of iterative reconstructive technique. FINDINGS CT HEAD: Parenchyma: No intraparenchymal hemorrhage. No evidence of mass, midline shift, or CT findings of infarction. Starr-white differentiation is distinct. Extraaxial Spaces: Normal for age. No subdural or epidural collections identified. Ventricles: Normal in size and position. Sinuses and orbits: Imaged paranasal sinuses, orbits, and mastoids show no significant abnormality. Bones: No evidence of fracture or calvarial defect. Other: Small extracranial right posterior soft tissue thickening likely represents a superficial hematoma. FINDINGS CT CERVICAL SPINE: Alignment: Normal. No scoliosis or spondylolisthesis. Bones: No fracture or bone lesion. Interspace Levels/Facets: There are multilevel degenerative changes including loss of disk space height with disk osteophyte complex formation with degenerative changes most pronounced from C5 to C7 where loss of disk space height is essentially complete. Similarly, there is multilevel facet arthropathy which is most pronounced at C5 through C7, moderate overall. Spinal Canal: Normal. Musculature: Normal. No fatty atrophy. Other: The paravertebral and prevertebral soft tissues are unremarkable. The lung apices are clear. IMPRESSION: Head CT: Negative for an acute intracranial abnormality. Cervical Spine CT: Negative for an acute osseous injury to the cervical spine. RADIA
[2018-09-27 15:50] VITALS: BP 157/89
== END 2018-09-27 15:50 | disposition home or self-care (01) ==
LOC: ED 10:37
DX: S09.90XA Unspecified injury of head, initial encounter (principal); W06.XXXA Fall from bed, initial encounter; W22.09XA Striking against other stationary object, initial encounter; I11.0 Hypertensive heart disease with heart failure; I50.9 Heart failure, unspecified; E11.9 Type 2 diabetes mellitus without complications; Z96.659 Presence of unspecified artificial knee joint; Z79.82 Long term (current) use of aspirin
CPT/HCPCS: 70450; 72125; 99283

== ENCOUNTER 2019-01-08 08:00 | Outpatient (CLI) | payer MEDICARE, BC ==
[2019-01-08 19:46] LABS: ALBUMIN 3.8 g/dL (3.2-5.5); CALCIUM 10.3 mg/dL (8.5-10.3); CREATININE 0.7 mg/dL (0.4-1.0); TOTAL PROTEIN 7.5 g/dL (6.7-8.2)
[2019-01-08 19:47] LABS: BASOPHILS % (AUTO) 0.4 %; EOSINOPHILS % (AUTO) 0.4 %; HGB - HEMOGLOBIN 15.5 g/dL (12.0-16.0); LYMPHOCYTES # (AUTO) 2.7 10^3/uL (1.5-3.5); LYMPHOCYTES % (AUTO) 24.9 %; MEAN CORPUSCULAR HEMOGLOBIN 29.3 pg (27.0-31.0); MEAN CORPUSCULAR HGB CONC 32.9 g/dL (32.0-36.0); MEAN CORPUSCULAR VOLUME 89.1 fL (81.0-99.0); MONOCYTES # (AUTO) 0.8 10^3/uL (0.0-1.0); MONOCYTES % (AUTO) 7.9 %; NEUTROPHILS # (AUTO) 7.1 10^3/uL (1.5-6.6); NEUTROPHILS % (AUTO) 66.4 %; PLT - PLATELET COUNT 170 10^3/uL (130-450); RED CELL DISTRIBUTION WIDTH 13.9 % (12.0-15.0); WHITE BLOOD COUNT 10.7 x10^3/uL (4.8-10.8)
[2019-01-08 20:16] LABS: THYROID STIMULATING HORMONE 2.18 uIU/mL (0.34-5.60)
[2019-01-08 20:18] LABS: FREE T4 (FREE THYROXINE) 0.84 ng/dL (0.58-1.64)
== END 2019-01-08 23:59 | disposition home or self-care (01) ==
LOC: LAB.N 08:00
PROVIDERS: ATTEND Family Medicine
DX: K59.9 Functional intestinal disorder, unspecified (principal); I10 Essential (primary) hypertension; L71.9 Rosacea, unspecified; E88.81 Metabolic syndrome and other insulin resistance
CPT/HCPCS: 36415; 80053; 84439; 84443; 84481; 85025

== ENCOUNTER 2019-02-06 08:00 | Outpatient (CLI) | payer MEDICARE, BC ==
[2019-02-06 19:14] LABS: BUN - BLOOD UREA NITROGEN 16 mg/dL (6-20); CALCIUM 9.4 mg/dL (8.5-10.3); CARBON DIOXIDE - CO2 26 mmol/L (21-32); CHLORIDE 104 mmol/L (101-111); CHOL/HDL RATIO 3.6 (<4.4); CHOLESTEROL 188 mg/dL; CREATININE 0.7 mg/dL (0.4-1.0); GFR - MDRD 80 (>89); GLUCOSE 141 mg/dL (70-100); HDL CHOLESTEROL 52 mg/dL; LDL CHOLESTEROL,CALCULATED 104 mg/dL; SODIUM 139 mmol/L (135-145); VLDL CHOLESTEROL 32 mg/dL
== END 2019-02-06 23:59 | disposition home or self-care (01) ==
LOC: LAB.N 08:00
PROVIDERS: ATTEND Internal Medicine Cardiovascular Disease
DX: I77.89 Other specified disorders of arteries and arterioles (principal); E78.5 Hyperlipidemia, unspecified; I10 Essential (primary) hypertension
CPT/HCPCS: 36415; 80048; 80061; 83721

== ENCOUNTER 2019-08-15 10:40 | Day surgery (SDC) | payer MEDICARE, BC ==
[2019-08-15] MEDS ORDERED: KETAMINE 500 MG/10 ML VIAL IVP ONE (10:41)
[2019-08-15] MEDS ORDERED: PROPOFOL 200 MG/20 ML VIAL IVP ONE (10:41)
[2019-08-15] MEDS ORDERED: LACTATED RINGERS 1,000 ML IV ONE (11:13)
--- NOTE | 2019-08-15 11:24 | ANESTHESIA ---
Pre-Anesthesia VS, & Labs - Diagnosis meneses's esophagus, chronic diarrhea - Procedure EGD, colonoscopy Vital Signs: 161/96, 87, 36.4, 97% Height 5 ft 2 in Body Mass Index 40.2 - NPO >8 hours - Is Patient ?: No Home Medications and Allergies Home Medications: Ambulatory Orders Acetaminophen [Tylenol] 325 mg PO QPM 08/14/19 Cranberry 500 mg PO BID 08/14/19 Aspirin [Aspir-Low] 81 mg PO DAILY 02/02/16 Acetaminophen [Tylenol] 325 mg PO QPM 08/14/19 Cranberry 500 mg PO BID 08/14/19 Allergies/Adverse Reactions: Allergies Allergy/AdvReac Type Severity Reaction Status Date / Time celecoxib [From Celebrex] Allergy Mild stomach Verified 09/27/18 10:56 cephalexin monohydrate * Allergy Mild Rash Verified 09/27/18 10:56 [From Keflex] ciprofloxacin [From Cipro] Allergy Mild Rash Verified 09/27/18 10:56 ciprofloxacin HCl * Allergy Mild Rash Verified 09/27/18 10:56 [From Cipro] codeine [Codeine] Allergy Mild Rash Verified 09/27/18 10:56 erythromycin base Allergy Mild Rash Verified 09/27/18 10:56 [Erythromycin Base] ibuprofen Allergy Mild stomach Verified 09/27/18 10:56 levofloxacin [From Levaquin] Allergy Mild Rash Verified 09/27/18 10:56 meloxicam [From Mobic] Allergy Mild stomach Verified 09/27/18 10:56 meperidine HCl * Allergy Mild Rash Verified 09/27/18 10:56 [From Demerol] metformin Allergy Mild stomach Verified 09/27/18 10:56 morphine Allergy Mild Rash Verified 09/27/18 10:56 nitrofurantoin Allergy Mild Rash Verified 09/27/18 10:56 macrocrystalline * [From Macrodantin] norfloxacin [From Noroxin] Allergy Mild Rash Verified 09/27/18 10:56 Penicillins Allergy Mild Rash Verified 09/27/18 10:56 povidone-iodine Allergy Mild Rash Verified 09/27/18 10:56 [From Betadine] Quinolones Allergy Mild Rash Verified 09/27/18 10:56 soap * [From Betadine] Allergy Mild Rash Verified 09/27/18 10:56 Sulfa (Sulfonamide Allergy Mild Rash Verified 09/27/18 10:56 Antibiotics) tetracycline [Tetracycline] Allergy Mild Rash Verified 09/27/18 10:56 Thiazides Allergy Mild Rash Verified 09/27/18 10:56 prednisone Allergy Anxiety Verified 09/27/18 10:56 valsartan Allergy Anaphylaxis Verified 09/27/18 10:56 pioglitazone HCl * AdvReac Mild felt funny Verified 09/27/18 10:56 [From Actos] trimethoprim AdvReac Unknown Verified 09/27/18 10:56 Anes History & Medical History - Anesthetic History Anesthesia Complications: reports: Other-see comment (something with last colonoscopy, patient not sure what, not in EMR) - Medical History Cardiovascular: reports: Congestive heart failure, Hypertension, Atrial fibrillation Pulmonary: reports: Pneumonia Gastrointestinal: reports: GERD, Colon polyps, Chronic diarrhea, Chronic constipation Urinary: reports: Incontinence, Chronic bladder infection, Kidney stones Neuro: reports: None Musculoskeletal: reports: Osteoarthritis, Fibromyalgia, Other Endocrine/Autoimmune: reports: Type 2 diabetes Blood Disorders: reports: None Skin: reports: Rosacea Smoking Status: Never smoker - Surgical History General: Cholecystectomy, Colonoscopy, Other Eyes Ears Nose Throat (EENT): Cataracts, Tonsil/Adenoidectomy Cardiothoracic: Vascular surgery Gynecologic: Hysterectomy, Other Orthopedic: Knee replacement Exam General: Alert Dental: WNL Mallampati classification: II Thyromental Distance: greater than 6 cm Respiratory: Lungs clear Cardiovascular: Regular rate, Normal S1, Normal S2 Mental/Cognitive Status: Alert/Oriented X3 Plan Anesthesia Type: MAC Consent for Procedure(s) Verified and Reviewed: Yes Code Status: Attempt Resuscitation ASA classification: 3-Severe systemic disease Is this case an emergency?: Yes
[2019-08-15] MEDS ORDERED: LIDO GARGLE 30 ML BOTTLE ONE (11:26)
[2019-08-15 13:34] VITALS: BP 172/72
== END 2019-08-15 10:41 | disposition home or self-care (01) ==
LOC: SDS 10:40
PROVIDERS: ATTEND Surgery
PROC: 0DB68ZX Excision of Stomach, Via Natural or Artificial Opening Endoscopic, Diagnostic (ICD-10-PCS; 2019-08-15)
PROC: 0DB48ZX Excision of Esophagogastric Junction, Via Natural or Artificial Opening Endoscopic, Diagnostic (ICD-10-PCS; 2019-08-15)
PROC: 0DBE8ZX Excision of Large Intestine, Via Natural or Artificial Opening Endoscopic, Diagnostic (ICD-10-PCS; principal; 2019-08-15 11:45)
PROC: 0DB98ZX Excision of Duodenum, Via Natural or Artificial Opening Endoscopic, Diagnostic (ICD-10-PCS; 2019-08-15 11:45)
DX: K52.9 Noninfective gastroenteritis and colitis, unspecified (principal); R10.9 Unspecified abdominal pain; K22.70 Barrett's esophagus without dysplasia; K44.9 Diaphragmatic hernia without obstruction or gangrene; K22.2 Esophageal obstruction; K57.30 Diverticulosis of large intestine without perforation or abscess without bleeding; K64.8 Other hemorrhoids; Z92.84 Personal history of unintended awareness under general anesthesia; E66.9 Obesity, unspecified; I10 Essential (primary) hypertension; K59.9 Functional intestinal disorder, unspecified; Z68.38 Body mass index [BMI] 38.0-38.9, adult
CPT/HCPCS: 43239; 45380; 83630; 87015; 87177; 87209; 87272; 87329; 87493; A9270; J7120; 88305

== ENCOUNTER 2019-12-03 23:11 | Outpatient (CLI) | payer MEDICARE, BC | END 2019-12-03 23:12 | disposition critical access hospital (66) | LOC: EMS 23:11 | PROVIDERS: ATTEND Surgery | DX: R09.89 Other specified symptoms and signs involving the circulatory and respiratory systems (principal) | CPT/HCPCS: A0425; A0429 ==

== ENCOUNTER 2019-12-03 23:28 | Emergency (ER) | payer MEDICARE, BC ==
--- NOTE | 2019-12-03 23:51 | ED Physician Documentation ---
History of Present Illness - Stated complaint Stated Complaint: ALLERGIC REACTION - Chief complaint Chief Complaint: Allergic Rx - Additonal information Additional information: This is an 84-year-old female who presents with concern for allergic reaction. Patient has an extensive history of allergic reactions, she took some [id number] cranberry supplement for her urinary symptoms today, and she states that around 45 minutes ago she developed flushing over her face as well as a feeling that her throat was closing up. She took Benadryl and by the time EMS arrived her symptoms had resolved and she had no rash or no respiratory d istress. She did not receive any medications in route. She now is feeling okay. Review of Systems Constitutional: denies: Fever Nose: denies: Rhinorrhea / runny nose Respiratory: denies: Cough GI: denies: Vomiting : reports: Dysuria Skin: reports: Rash Neurologic: denies: Generalized weakness PD PAST MEDICAL HISTORY - Past Medical History Cardiovascular: Congestive heart failure, Hypertension, Atrial fibrillation Respiratory: Pneumonia Neuro: None Endocrine/Autoimmune: Type 2 diabetes GI: GERD, Colon polyps, Chronic diarrhea, Chronic constipation SCHOOL MANAGER: None : Incontinence, Chronic bladder infection, Kidney stones HEENT: Glaucoma Psych: Anxiety, Bipolar disorder Musculoskeletal: Osteoarthritis, Fibromyalgia, Other Derm: Rosacea - Past Surgical History Past Surgical History: Yes General: Cholecystectomy, Colonoscopy, Other Ortho: Knee replacement /SCHOOL MANAGER: Hysterectomy, Other Cardiovascular: Vascular surgery HEENT: Cataracts, Tonsil/Adenoidectomy - Present Medications Home Medications: Ambulatory Orders Medication Instructions Recorded Confirmed Aspirin [Aspir-Low] 81 mg PO DAILY 02/02/16 08/14/19 Acetaminophen [Tylenol] 650 mg PO QPM 08/14/19 08/14/19 Famotidine 10 mg PO PRN PRN 12/03/19 12/03/19 Nitroglycerin 1 tab SL PRN PRN 12/03/19 12/03/19 Fosfomycin Tromethamine [Monurol] 3 gm PO ONCE #1 packet 12/04/19 - Allergies Allergies/Adverse Reactions: Allergies Allergy/AdvReac Type Severity Reaction Status Date / Time celecoxib [From Celebrex] Allergy Mild stomach Verified 09/27/18 10:56 cephalexin monohydrate * Allergy Mild Rash Verified 09/27/18 10:56 [From Keflex] ciprofloxacin [From Cipro] Allergy Mild Rash Verified 09/27/18 10:56 ciprofloxacin HCl * Allergy Mild Rash Verified 09/27/18 10:56 [From Cipro] codeine [Codeine] Allergy Mild Rash Verified 09/27/18 10:56 erythromycin base Allergy Mild Rash Verified 09/27/18 10:56 [Erythromycin Base] ibuprofen Allergy Mild stomach Verified 09/27/18 10:56 levofloxacin [From Levaquin] Allergy Mild Rash Verified 09/27/18 10:56 meloxicam [From Mobic] Allergy Mild stomach Verified 09/27/18 10:56 meperidine HCl * Allergy Mild Rash Verified 09/27/18 10:56 [From Demerol] metformin Allergy Mild stomach Verified 09/27/18 10:56 morphine Allergy Mild Rash Verified 09/27/18 10:56 nitrofurantoin Allergy Mild Rash Verified 09/27/18 10:56 macrocrystalline * [From Macrodantin] norfloxacin [From Noroxin] Allergy Mild Rash Verified 09/27/18 10:56 Penicillins Allergy Mild Rash Verified 09/27/18 10:56 povidone-iodine Allergy Mild Rash Verified 09/27/18 10:56 [From Betadine] Quinolones Allergy Mild Rash Verified 09/27/18 10:56 soap * [From Betadine] Allergy Mild Rash Verified 09/27/18 10:56 Sulfa (Sulfonamide Allergy Mild Rash Verified 09/27/18 10:56 Antibiotics) tetracycline [Tetracycline] Allergy Mild Rash Verified 09/27/18 10:56 Thiazides Allergy Mild Rash Verified 09/27/18 10:56 prednisone Allergy Anxiety Verified 09/27/18 10:56 valsartan Allergy Anaphylaxis Verified 09/27/18 10:56 pioglitazone HCl * AdvReac Mild felt funny Verified 09/27/18 10:56 [From Actos] trimethoprim AdvReac Unknown Verified 09/27/18 10:56 - Social History Does the pt smoke?: No Smoking Status: Never smoker Does the pt drink ETOH?: No Does the pt have substance abuse?: No - Immunizations Immunizations are current?: Yes - POLST Patient has POLST: No PD ED PE NORMAL - Vitals Vital signs reviewed: Yes - General General: Alert and oriented X 3, No acute distress - HEENT HEENT: PERRL - Neck Neck: Supple, no meningeal sign - Cardiac Cardiac: RRR, No murmur - Respiratory Respiratory: No respiratory distress, Clear bilaterally - Abdomen Abdomen: Normal bowel sounds, Soft, Non tender, Non distended - Derm Derm: Warm and dry, No rash - Extremities Extremities: No deformity - Neuro Neuro: Alert and oriented X 3 - Psych Psych: Normal mood, Normal affect Results - Vitals Vitals: Oxygen O2 Source Room air - Labs Labs: Microbiology 12/04/19 00:05 Urine Culture - Final Urine,Clean Catch Escherichia Coli Laboratory Tests 12/04/19 00:05 Urine Color YELLOW Urine Clarity CLEAR Urine pH 7.0 Ur Specific [place] 1.010 Urine Protein NEGATIVE Urine Glucose (UA) NEGATIVE Urine Ketones NEGATIVE Urine Occult Blood SMALL H Urine Nitrite POSITIVE H Urine Bilirubin NEGATIVE Urine Urobilinogen 0.2 (NORMAL) Ur Leukocyte Esterase LARGE H Urine RBC 0-5 Urine WBC 6-10 H Ur Squamous Epith Cells NONE SEEN Urine Bacteria Moderate H Ur Microscopic Review INDICATED Urine Culture Comments INDICATED PD MEDICAL DECISION MAKING - ED course Complexity details: considered differential (Drug reaction, anaphylaxis, UTI) ED course: Pt arrives very well-appearing, and EMS reports that when they arrived she also appeared completely normal. She describes concerning symptoms including beginning to feel like her throat was swelling and developing redness of her skin, but this resolved within minutes of taking benadryl, making anaphylaxis less likely. She has no respiratory distress or rash on my exam. She was observed in the ED for over an hour with no symptoms and she continues to feel well. She has allergies listed to quite literally almost every antibiotic class. It seems unlikely that she would truly have allergies to every antibiotic, and I do wonder if there is a component of anxiety to some of her reported allergies. Her UA does show a UTI and I discussed varying options including giving a low risk abx (one she only had a rash to) and observing her in the ED. She refuses this. After discussion with her of risks and benefits we have decided to prescribe her fosfomycin as she has not had this abx before. She does not want to take it here but wants to discuss with her PCP first. She understands the risks of delayed tx of her UTI, and that observing her here would allow for expedited care if she did develop a reaction. I reviewed return precautions and pt was discharged home in very good condition. Departure - Departure Disposition: Home, Self Care Clinical Impression: UTI (urinary tract infection) Qualifiers: Urinary tract infection type: acute cystitis Hematuria presence: without hematuria Qualified Code(s): N30.00 - Acute cystitis without hematuria Condition: Good Instructions: ED UTI Cystitis Female Follow-Up: Michael Bonds MD [Primary Care Provider] - Prescriptions: Fosfomycin Tromethamine [Monurol] 3 gm PO ONCE #1 packet Comments: You have a urinary tract infection. We wanted to treat you with antibiotics he re, but you have refused these. Please take the antibiotic prescribed tomorrow, you only need 1 dose of it. Follow-up with your primary care provider to ensure that you are urinary tract infection has improved. If you are developing signs of an allergic reaction such as diffuse rash, trouble breathing, vomiting call 911 immediately. Discharge Date/Time: 12/04/19 02:28
[2019-12-04 00:43] LABS: BILIRUBIN,URINE NEGATIVE (NEGATIVE); GLUCOSE, URINE (UA) NEGATIVE (NEGATIVE); KETONES,URINE (UA) NEGATIVE (NEGATIVE); LEUKOCYTE ESTERASE, URINE LARGE (NEGATIVE); NITRITE,URINE POSITIVE (NEGATIVE); OCCULT BLOOD,URINE SMALL (NEGATIVE); PROTEIN,URINE NEGATIVE (NEGATIVE); UROBILINOGEN,URINE 0.2 (NORMAL) E.U./dL (NORMAL)
[2019-12-04 00:44] LABS: CLARITY,URINE CLEAR (CLEAR)
[2019-12-04 00:53] LABS: BACTERIA,URINE Moderate /HPF (None Seen); RBC,URINE 0-5 /HPF (0-5); SQUAMOUS EPITHELIAL CELL,UR NONE SEEN (<= Few)
[2019-12-04] MEDS ORDERED: DOXYCYCLINE 100 MG TABLET PO STA (01:22)
[2019-12-04 02:26] VITALS: BP 146/85
== END 2019-12-04 02:28 | disposition home or self-care (01) ==
LOC: EDUNIT# → ED 23:28
DX: N30.00 Acute cystitis without hematuria (principal); R23.2 Flushing; J39.2 Other diseases of pharynx; T50.995A Adverse effect of other drugs, medicaments and biological substances, initial encounter; Z88.1 Allergy status to other antibiotic agents; Z88.3 Allergy status to other anti-infective agents; Z88.0 Allergy status to penicillin; Z88.2 Allergy status to sulfonamides; I10 Essential (primary) hypertension; E11.9 Type 2 diabetes mellitus without complications; Z79.82 Long term (current) use of aspirin
CPT/HCPCS: 81001; 81003; 87086; 87181; 99283; 99284